=== PATIENT | male | born 1965 | race Caucasian/White ===

== ENCOUNTER 2018-04-11 12:37 | Emergency (ER) | payer OTHER ==
[2018-04-11 12:45] VITALS: BP 129/85; PULSE 78; TEMP 97.7; BMI 31.5
[2018-04-11] MEDS ORDERED: DIPHTH,PERTUSS(ACELL),TET 0.5 ML DISP.SYRIN IM ONE ×2 (12:57→13:04)
--- NOTE | 2018-04-11 13:00 | PDOC ---
History of Present Illness - General Chief Complaint: Injury Stated Complaint: injury to fore head at work Time Seen by Provider: 04/11/18 12:44 - History of Present Illness Initial Comments: 04/11/18 13:52 Chief complaint: Injury to forehead History of present illness: Patient was inadvertently struck in the forehead with a rifle butt during and exercise. He sustained a minor abrasion. No loss of consciousness. Review of systems: Denies headache, visual or focal neurologic symptoms, unsteadiness of gait, neck injury or neck pain. 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 One 1 cm contusion. Minimal tenderness. No depression or crepitus. PERRLA 4 mm, fundi benign with sharp disc margins and good central venous pulsations. EOMs full without diplopia. Visual tiwari intact to confrontation. ENT clear Neck without tenderness or deformity, full range of motion without pain Chest clear with full breath sounds bilaterally. No wheezes rales or rhonchi. No chest wall or rib cage tenderness or deformity CV regular without murmur rub or gallop Abdomen benign Extremities no visible or palpable trauma Neurological C2 to 12 intact. Strength full and symmetric. No focal sensory or motor deficits. Gait stable and unimpaired. Cerebellum intact Impression: Minor contusion and abrasion of the forehead. No sign of neurological injury Plan: Wound was scrubbed with normal saline, dressed with bacitracin. Tetanus booster was administered. Head injury and wound care instructions. Discharged in no pain or other distress to follow-up primary physician or return to ER if further symptoms develop. Past History - Past Medical History Allergies/Adverse Reactions: Allergies Allergy/AdvReac Type Severity Reaction Status Date / Time morphine Allergy Verified 04/11/18 12:38 Home Medications: Ambulatory Orders NK [No Known Home Medication] 11/04/14 COPD: No Other medical history: pt denies - Surgical History Cholecystectomy: Yes - Suicide/Smoking/Psychosocial Hx Smoking History: Never smoked Hx Alcohol Use: No Drug/Substance Use Hx: No Substance Use Type: Alcohol *Physical Exam - Vital Signs Last Vital Signs Temp Pulse Resp BP Pulse Ox 97.7 F 78 18 129/85 96 04/11/18 12:38 04/11/18 12:38 04/11/18 12:38 04/11/18 12:38 04/11/18 12:38 Moderate Sedation - Procedure Monitoring Vital Signs: Procedure Monitoring Vital Signs Temperature 97.7 F 04/11/18 12:38 Pulse Rate 78 04/11/18 12:38 Respiratory Rate 18 04/11/18 12:38 Blood Pressure 129/85 04/11/18 12:38 O2 Sat by Pulse Oximetry (%) 96 04/11/18 12:38 *DC/Admit/Observation/Transfer Diagnosis at time of Disposition: Abrasion of forehead Qualifiers: Encounter type: initial encounter Qualified Code(s): S00.81XA - Abrasion of other part of head, initial encounter - Discharge Dispostion Disposition: HOME Condition at time of disposition: Improved Decision to Admit order: No - Referrals - Patient Instructions Printed Discharge Instructions: DI for Closed Head Injury, DI for Abrasion Additional Instructions: Rest, ice, wound care. Recheck immediately if increased pain or sign of infection. Otherwise dressed with bacitracin or Neosporin and keep covered until healed. - Post Discharge Activity Forms/Work/School Notes: Back to Work
== END 2018-04-11 13:13 | disposition home or self-care (01) ==
LOC: FER 12:37
PROC: 3E023GC Introduction of Other Therapeutic Substance into Muscle, Percutaneous Approach (ICD-10-PCS; principal; 2018-04-11)
DX: S00.81XA Abrasion of other part of head, initial encounter (principal); W20.8XXA Other cause of strike by thrown, projected or falling object, initial encounter; Y93.89 Activity, other specified; Y92.89 Other specified places as the place of occurrence of the external cause; Y99.0 Civilian activity done for income or pay
CPT/HCPCS: 90715; 99282-25